=== PATIENT | male | born 1975 | race Caucasian/White ===

== ENCOUNTER 2024-03-19 16:34 | Emergency (ER) | payer BC ==
[~2024-03-19] VITALS: Ht 167.6 cm; Wt 90.9 kg
[2024-03-19] MEDS ORDERED: IBUP-1455 PO (18:17)
[2024-03-19 18:48] VITALS: BP 135/76; PULSE 75; RESP 16; TEMP 98.7; O2SAT 98
== END 2024-03-19 18:51 | disposition home or self-care (01) ==
LOC: ER 16:34
DX: S90.31XA Contusion of right foot, initial encounter (principal); W22.8XXA Striking against or struck by other objects, initial encounter; Y93.89 Activity, other specified; Y92.89 Other specified places as the place of occurrence of the external cause; Y99.8 Other external cause status
CPT/HCPCS: 73630